=== PATIENT | male | born 1960 | race Caucasian/White ===

== ENCOUNTER 2017-10-09 14:52 | Emergency (ER) | payer BC ==
--- NOTE | 2017-10-09 15:33 | EDPHY ---
General Narrative: CHIEF COMPLAINT: Fall, headache, taking blood thinners HISTORY OF PRESENT ILLNESS: Patient complains of headache. He says yesterday afternoon he was walking when he tripped and fell. He struck his head face 1st on the dirt. Did not lose consciousness. Since that time he has had a [id number] headache. It has worsened to moderate to severe throughout the day. Some nausea and dizziness. No loss of consciousness. No vomiting. No visual disturbance. No neck pain. No injury anywhere else on his person. He does take Effient which concerned him. However he also took his Toradol today or increasing headache. No other associated complaints or modifying factors. REVIEW OF SYSTEMS: Ten systems reviewed and are negative unless otherwise noted in the HPI PCP: Dr. Colette Melton SPECIALISTS: Dr. Marshall Miguel PAST MEDICAL HISTORY: Hypertension, dyslipidemia, coronary artery disease with stents, headache, migraine, cluster headaches, GERD, peptic ulcer disease PAST SURGICAL HISTORY: No recent surgeries. Recent upper endoscopy revealing peptic ulcer nonbleeding SOCIAL HISTORY: Nonsmoker. No drug or alcohol use. FAMILY HISTORY: Noncontributory EXAMINATION General Appearance: Alert, no distress Head: normocephalic, atraumatic. No Plummer sign. No raccoon eyes. No depression , laceration or ecchymosis Eyes: Pupils equal and round, no conjunctival pallor or injection ENT, Mouth: Mucous membranes moist. Airway patent Neck: Normal inspection, supple, non-tender. No crepitus, step-off or deformity. Painless range in all planes Respiratory: Lungs are clear to auscultation Cardiovascular: Regular rate and rhythm. No murmur Gastrointestinal: Abdomen is soft and nontender Neurological: A&O, nonfocal, normal gait strength is symmetric in all 4 limbs Skin: Warm and dry, no rash. No petechiae or purpura. No abrasion. No laceration Extremities: Nontender, no pedal edema. Symmetric range of motion of the extremities Psychiatric: Mood and affect normal DIFFERENTIAL DIAGNOSES: Including but not limited to closed head injury, concussion, subdural hematoma, subarachnoid hemorrhage, epidural hematoma, migraine headache MDM: 3:30 p.m. Mechanical fall with closed head injury and worsening frontal headache in a patient taking Effient. He is awake and alert no acute distress but his neuro exam is normal. No obvious signs of basilar skull fracture injury. I have ordered CT scan of the head due to his fall on anticoagulant. I have ordered laboratory studies and IV placement as he will likely need medication for his headache. Clinical suspicion is higher for exacerbation of chronic headaches and less likely intracranial hemorrhage. He is in no acute distress. Vital signs are stable. 4:15 p.m. Notified by radiologist Dr. Machado. No acute findings on the CT scan of the head. There are some chronic sinus inflammatory changes. Laboratory studies are unremarkable. 4:25 p.m. Patient re-evaluated. He is in no acute distress but does have a persistent headache. We discuss IV versus p.o. medication, but the patient drove himself here and wants to drive home. Will defer treatment here so he can go home. I will prescribe Tylenol 3 with codeine as he has had adverse reaction to Fiorinal in the past. In addition we discussed taking this with antihistamine. We discussed follow up with primary care physician. We discussed ED precautions for pain refractory to these medications, any neck pain or stiffness , nausea vomiting. He is comfortable with this plan and discharged home stable condition. SUPERVISION: Patient was independently examined, but I discussed the case with my secondary supervising physician Dr. Van - Diagnostics Imaging Results: Imaging Impressions Head CT 10/09/17 15:33 Impression: 1. Normal CT brain without contrast. 2. Mild sinusitis. 3. No epidural or subdural hematoma. 4. No skull fracture. Findings and recommendations discussed with Emergency Department physician, Fox Gao at 1615 hour, 10/09/2017. Final report concurs with initial preliminary interpretation. - History Smoking Status: Never smoked - Objective Vital Signs: Initial Vital Signs Temperature (C) 96.8 F 10/09/17 15:00 Heart Rate 88 10/09/17 15:00 Respiratory Rate 16 10/09/17 15:00 Blood Pressure 167/90 H 10/09/17 15:00 O2 Sat (%) 99 10/09/17 15:00 O2 Delivery Mode Room Air Allergies/Adverse Reactions: No Known Allergies Allergy (Unverified 10/09/17 14:59) Home Medications: Medication Instructions Recorded ALPRAZolam 10/09/17 Acetaminophen/Codeine 300/30Mg 1 each PO Q6 PRN #15 tab 10/09/17 [Tylenol #3 (*)] Ambien 10/09/17 Aspirin 10/09/17 Basiliximab 10/09/17 Belsomra 10/09/17 Cozaar 10/09/17 Effexor Xr 10/09/17 Effient 10/09/17 Lipitor 10/09/17 Nexium 10/09/17 Prednisone 10/09/17 Toradol 10/09/17 Trileptal 10/09/17 Laboratory Results: Laboratory Results 10/09/17 15:40 10/09/17 15:40 10/09/17 10/09/17 10/09/17 15:40 15:40 15:40 WBC 7.54 10^3/uL 10^3/uL (3.80-9.50) RBC 5.24 10^6/uL 10^6/uL (4.40-6.38) Hgb 15.0 g/dL g/dL (13.7-17.5) Hct 43.5 % % (40.0-51.0) MCV 83.0 fL fL (81.5-99.8) MCH 28.6 pg pg (27.9-34.1) MCHC 34.5 g/dL g/dL (32.4-36.7) RDW 13.9 % % (11.5-15.2) Plt Count 167 10^3/uL 10^3/uL (150-400) MPV 10.6 fL fL (8.7-11.7) Neut % (Auto) 68.4 % % (39.3-74.2) Lymph % (Auto) 22.1 % % (15.0-45.0) [place] % (Auto) 6.6 % % (4.5-13.0) Eos % (Auto) 1.7 % % (0.6-7.6) Baso % (Auto) 0.8 % % (0.3-1.7) Nucleat RBC Rel Count 0.0 % % (0.0-0.2) Absolute Neuts (auto) 5.15 10^3/uL 10^3/uL (1.70-6.50) Absolute Lymphs (auto) 1.67 10^3/uL 10^3/uL (1.00-3.00) Absolute Monos (auto) 0.50 10^3/uL 10^3/uL (0.30-0.80) Absolute Eos (auto) 0.13 10^3/uL 10^3/uL (0.03-0.40) Absolute Basos (auto) 0.06 10^3/uL 10^3/uL (0.02-0.10) Absolute Nucleated RBC 0.00 10^3/uL 10^3/uL (0-0.01) Immature Gran % 0.4 % % (0.0-1.1) Immature Gran # 0.03 10^3/uL 10^3/uL (0.00-0.10) PT 13.0 SEC SEC (12.0-15.0) INR 0.96 (0.83-1.16) APTT 25.8 SEC SEC (23.0-38.0) Sodium 139 mEq/L mEq/L (135-145) Potassium 3.6 mEq/L mEq/L (3.5-5.2) Chloride 103 mEq/L mEq/L (97-110) Carbon Dioxide 21 mEq/l L mEq/l (22-31) Anion Gap 15 mEq/L mEq/L (8-16) BUN 14 mg/dL mg/dL (7-23) Creatinine 0.7 mg/dL mg/dL (0.7-1.3) Estimated GFR > 60 Glucose 118 mg/dL H mg/dL (70-100) Calcium 9.6 mg/dL mg/dL (8.5-10.4) Departure - Departure Disposition: Home, Routine, Self-Care Clinical Impression: Frontal headache Closed head injury without concussion Qualifiers: Encounter type: initial encounter Qualified Code(s): S09.90XA - Unspecified injury of head, initial encounter Condition: Good Instructions: Acute Headache (ED), Head Injury (ED) Additional Instructions: 1. Medication as prescribed as needed 2. Contact primary care physician follow-up early next week 3. ED precautions for any pain refractory to these medications, sudden change in headache, neck pain or stiffness, fever, vomiting or visual disturbance Referrals: Colette Melton MD [Primary Care Provider] - As per Instructions Prescriptions: Acetaminophen/Codeine 300/30Mg [Tylenol #3 (*)] 1 each PO Q6 PRN #15 tab PRN Reason: Pain, Mild
[2017-10-09 15:52] LABS: PLATELET COUNT 167 10^3/uL (150-400)
[2017-10-09 15:57] LABS: INR 0.96 (0.83-1.16)
[2017-10-09 16:44] VITALS: BP 130/83; PULSE 75; RESP 18; TEMP 97.5; O2SAT 94
== END 2017-10-09 16:48 | disposition home or self-care (01) ==
DX: S09.90XA Unspecified injury of head, initial encounter (principal); I10 Essential (primary) hypertension; I25.10 Atherosclerotic heart disease of native coronary artery without angina pectoris; Z79.82 Long term (current) use of aspirin; W01.0XXA Fall on same level from slipping, tripping and stumbling without subsequent striking against object, initial encounter; Y99.8 Other external cause status; Y93.01 Activity, walking, marching and hiking

== ENCOUNTER → 2017-11-23 | Outpatient (CLI) | payer BC | LOC: FIMAGING 13:51 | PROVIDERS: ATTEND Internal Medicine | DX: R91.8 Other nonspecific abnormal finding of lung field (principal) ==

== ENCOUNTER → 2018-03-16 | Outpatient (CLI) | payer BC | LOC: BMCIMAGING 17:47 | PROVIDERS: ATTEND Family Medicine | DX: S92.515A Nondisplaced fracture of proximal phalanx of left lesser toe(s), initial encounter for closed fracture (principal); Y93.9 Activity, unspecified ==

== ENCOUNTER → 2018-04-21 | Outpatient (CLI) | payer BC | LOC: BMCIMAGING 10:44 | PROVIDERS: ATTEND Podiatrist Foot & Ankle Surgery | DX: S92.425 Nondisplaced fracture of distal phalanx of left great toe (principal) ==

== ENCOUNTER → 2018-06-03 | Outpatient (CLI) | payer BC, OTHER | LOC: BMCIMAGING 14:16 | PROVIDERS: ATTEND Podiatrist Foot & Ankle Surgery | DX: S92.425D Nondisplaced fracture of distal phalanx of left great toe, subsequent encounter for fracture with routine healing (principal) ==

== ENCOUNTER → 2018-07-16 | Outpatient (CLI) | payer BC | LOC: BMCIMAGING 09:35 | PROVIDERS: ATTEND Podiatrist Foot & Ankle Surgery | DX: S92.425D Nondisplaced fracture of distal phalanx of left great toe, subsequent encounter for fracture with routine healing (principal) ==

== ENCOUNTER 2018-09-05 12:34 | Emergency (ER) | payer BC ==
--- NOTE | 2018-09-05 12:48 | EDPHY ---
H & P Stated Complaint: Cough >1mo; noticed blood;general aches Time Seen by Provider: 09/05/18 12:48 HPI/ROS: CHIEF COMPLAINT: Cough, headache HISTORY OF PRESENT ILLNESS: The patient presents to the ED with multiple complaints including a 1 month history of cough, headache and myalgias. The patient has not sought care for evaluation of his symptoms. The patient did recently returned from [place] on an airplane. He does feel as if his symptoms have acutely worsened over the past several days. The patient denies any vomiting or diarrhea. The patient denies any history of fall or trauma. He has no complaints of acute numbness or weakness. The patient does complain of diffuse arthralgias predominantly in the back and shoulder. REVIEW OF SYSTEMS: A comprehensive 10 point review of systems is otherwise negative aside from elements mentioned in the history of present illness. Source: Patient Exam Limitations: No limitations - Personal History Current Tetanus Diphtheria and Acellular Pertussis (TDAP): Yes - Medical/Surgical History Hx Asthma: No Hx Chronic Respiratory Disease: No Hx Diabetes: No Hx Cardiac Disease: Yes Hx Renal Disease: No Hx Cirrhosis: No Hx Alcoholism: No Hx HIV/AIDS: No Hx Splenectomy or Spleen Trauma: No Other PMH: chronic fatigue, depression, anxiety, elevated CRP Hx, chronic back pain bulging disc L4-L5(Dr Fisher), migraines,IBS. 1 cardiac stent placed 03/24/17 - Social History Smoking Status: Never smoked - Physical Exam Exam: General Appearance: Alert, no distress Eyes: Pupils equal and round no pallor or injection ENT, Mouth: Mucous membranes moist Respiratory: There are no retractions, lungs are clear to auscultation Cardiovascular: Regular rate and rhythm Gastrointestinal: Abdomen is soft and nontender, no masses, bowel sounds normal Neurological: A&O, normal motor function, normal sensory exam, normal cranial nerves Skin: Warm and dry, no rashes Musculoskeletal: Neck is supple nontender Extremities: symmetrical, full range of motion Constitutional: Initial Vital Signs Temperature (C) 37 C 09/05/18 12:36 Heart Rate 92 09/05/18 12:36 Respiratory Rate 18 09/05/18 12:36 Blood Pressure 118/69 09/05/18 12:36 O2 Sat (%) 96 09/05/18 12:36 O2 Delivery Mode Room Air Allergies/Adverse Reactions: No Known Allergies Allergy (Verified 09/05/18 12:36) Home Medications: Medication Instructions Recorded ALPRAZolam [Xanax Xr] 2 mg PO HS 03/21/17 Losartan Potassium [Cozaar 50 mg 50 mg PO HS 03/21/17 (*)] Oxcarbazepine [Trileptal] 150 mg PO BID 03/21/17 Sumatriptan Succinate [Imitrex] 100 mg PO ONCE PRN MDD 200 MG 03/21/17 Venlafaxine Xr [Effexor Xr 75MG 75 mg PO DAILY 03/21/17 (*)] Atorvastatin Calcium [Lipitor 40 80 mg PO DAILY #60 tab 03/26/17 mg (*)] Nexium 10/09/17 Albuterol [Ventolin Hfa Inhaler] 2 puffs IH QID PRN #1 mdi 09/05/18 Aspirin EC [Aspirin EC 81 mg (*)] 81 mg PO DAILY 09/05/18 Azithromycin [Zithromax] 250 mg PO DAILY #6 tab 09/05/18 Clopidogrel Bisulfate [Plavix (*)] 75 mg PO DAILY 09/05/18 Hydrochlorothiazide [HCTZ (*)] 25 mg PO DAILY 09/05/18 Potassium Chloride [Klor-Con M10] 10 meq PO 09/05/18 Rexalte 09/05/18 traZODone [traZODONE 50MG (*)] 50 mg PO 09/05/18 Medical Decision Making - Diagnostics EKG Interpretation: EKG: Complete interpretation has been separately recorded in the [employer] archive. Summary impression: Sinus rhythm, rate 83, ischemic changes noted ED Course/Re-evaluation: Patient presents the ED with a 1 month history of a chronic cough, dyspnea, back pain and shoulder discomfort. The patient has had acutely worsening symptoms over the past several days after a recent plane flight to [place]. The patient was noted to be neurologically intact upon arrival. He is hemodynamically stable. The patient's EKG demonstrates no evidence of an arrhythmia. Given the patient's history of prolonged travel and dyspnea a CT pulmonary angiogram was evaluated to evaluate for pulmonary embolism and also evaluate for infectious process. The results of the patient's CT pulmonary angiogram demonstrated only bronchitis. There is evidence of possible atypical pneumonia. Additional blood work was unremarkable. Specifically the patient has no evidence of significant leukocytosis, anemia or a metabolic derangement. Re-evaluated the patient at 2:15 p.m.. At this point time I will treat him for bronchitis and the possibility of an atypical pathogen. The patient will be given a prescription for azithromycin and albuterol inhaler. The patient will be advised to follow up with his primary care provider at the [facility]. He will be discharged home with customary aftercare instructions and return precautions. The patient's influenza test is noted to be negative in the emergency department. Differential Diagnosis: Differential diagnosis considered includes asthma, bronchitis, pneumonia, pulmonary embolism, arrhythmia, dehydration, metabolic abnormality - Data Points Laboratory Results: Laboratory Results 09/05/18 13:01 09/05/18 09/05/18 09/05/18 13:05 13: 13:01 WBC 8.94 10^3/uL 10^3/uL (3.80-9.50) RBC 5.09 10^6/uL 10^6/uL (4.40-6.38) Hgb 14.7 g/dL g/dL (13.7-17.5) POC Hgb 15.0 gm/dL gm/dL (13.7-17.5) Hct 43.0 % % (40.0-51.0) POC Hct 44 % % (40-51) MCV 84.5 fL fL (81.5-99.8) MCH 28.9 pg pg (27.9-34.1) MCHC 34.2 g/dL g/dL (32.4-36.7) RDW 14.3 % % (11.5-15.2) Plt Count 114 10^3/uL L 10^3/uL (150-400) MPV 11.3 fL fL (8.7-11.7) Neut % (Auto) 83.0 % H % (39.3-74.2) Lymph % (Auto) 8.5 % L % (15.0-45.0) [place] % (Auto) 6.4 % % (4.5-13.0) Eos % (Auto) 1.5 % % (0.6-7.6) Baso % (Auto) 0.4 % % (0.3-1.7) Nucleat RBC Rel Count 0.0 % % (0.0-0.2) Absolute Neuts (auto) 7.42 10^3/uL H 10^3/uL (1.70-6.50) Absolute Lymphs (auto) 0.76 10^3/uL L 10^3/uL (1.00-3.00) Absolute Monos (auto) 0.57 10^3/uL 10^3/uL (0.30-0.80) Absolute Eos (auto) 0.13 10^3/uL 10^3/uL (0.03-0.40) Absolute Basos (auto) 0.04 10^3/uL 10^3/uL (0.02-0.10) Absolute Nucleated RBC 0.00 10^3/uL 10^3/uL (0-0.01) Immature Gran % 0.2 % % (0.0-1.1) Immature Gran # 0.02 10^3/uL 10^3/uL (0.00-0.10) POC Sodium 138 mEq/L mEq/L (135-145) POC Potassium 3.3 mEq/L mEq/L (3.3-5.0) POC Chloride 98 mEq/L mEq/L (97-110) POC BUN 15 mg/dL mg/dL (7-23) POC Creatinine 0.9 mg/dL mg/dL (0.7-1.3) POC Glucose 106 mg/dL H mg/dL (70-100) Nasal Influenza A PCR NEGATIVE FOR FLU A (NEGATIVE) Nasal Influenza B PCR NEGATIVE FOR FLU B (NEGATIVE) Point of Care Test Results: Chemistry 09/05/18 13:05 POC Sodium 138 mEq/L mEq/L (135-145) POC Potassium 3.3 mEq/L mEq/L (3.3-5.0) POC Chloride 98 mEq/L mEq/L (97-110) POC BUN 15 mg/dL mg/dL (7-23) POC Creatinine 0.9 mg/dL mg/dL (0.7-1.3) POC Glucose 106 mg/dL H mg/dL (70-100) ISTAT H&H 09/05/18 13:05 POC Hgb 15.0 gm/dL gm/dL (13.7-17.5) POC Hct 44 % % (40-51) Departure - Departure Disposition: Home, Routine, Self-Care Clinical Impression: Acute bronchitis Condition: Good Instructions: Acute Bronchitis (ED) Additional Instructions: 1. Please take antibiotics as directed. 2. Please use inhaler up to every 2-4 hours as needed for cough. 3. Please schedule a follow-up appointment with your primary care provider for a recheck in the next week. Referrals: Colette Melton MD [Primary Care Provider] - As per Instructions Prescriptions: Albuterol [Ventolin Hfa Inhaler] 2 puffs IH QID PRN #1 mdi PRN Reason: for shortness of breath Azithromycin [Zithromax] 250 mg PO DAILY #6 tab
[2018-09-05] MEDS ORDERED: IOPAMIDOL (ISOVUE 370) 100 ML BTL IV ONE (13:19)
--- NOTE | 2018-09-05 13:31 | CPEKG ---
Test Reason : OPEN Blood Pressure : / mmHG Vent. Rate : 083 BPM Atrial Rate : 084 BPM P-R Int : 196 ms QRS Dur : 097 ms QT Int : 360 ms P-R-T Axes : 047 025 018 degrees QTc Int : 423 ms Sinus rhythm Confirmed by Jose Phillips ([id number]) on 09/05/2018 1:30:25 PM Referred By: Confirmed By:Jose Phillips
[2018-09-05 13:40] LABS: PLATELET COUNT 114 10^3/uL (150-400)
[2018-09-05 14:17] VITALS: BP 117/85
== END 2018-09-05 14:24 | disposition home or self-care (01) ==
DX: J20.9 Acute bronchitis, unspecified (principal)
CPT/HCPCS: 82435-PO; 82565-PO; 82947-PO; 84132-PO; 84295-PO; 84520-PO; 85014-ER; Q9967

== ENCOUNTER → 2018-11-03 | Outpatient (CLI) | payer BC | LOC: BMCIMAGING 14:25 | PROVIDERS: ATTEND Podiatrist Foot & Ankle Surgery | DX: S92.425D Nondisplaced fracture of distal phalanx of left great toe, subsequent encounter for fracture with routine healing (principal); M24.875 Other specific joint derangements left foot, not elsewhere classified ==

== ENCOUNTER → 2018-11-16 | Outpatient (CLI) | payer BC ==
[~2018-11-16] MED LIST: IOPAMIDOL (ISOVUE 370) 100 ML BTL IV ONE
== END ==
LOC: FIMAGING 08:50
PROVIDERS: ATTEND Podiatrist Foot & Ankle Surgery
DX: S92.425D Nondisplaced fracture of distal phalanx of left great toe, subsequent encounter for fracture with routine healing (principal); K42.9 Umbilical hernia without obstruction or gangrene; K40.90 Unilateral inguinal hernia, without obstruction or gangrene, not specified as recurrent; N40.2 Nodular prostate without lower urinary tract symptoms; N28.1 Cyst of kidney, acquired; M51.35 Other intervertebral disc degeneration, thoracolumbar region
CPT/HCPCS: Q9967

== ENCOUNTER → 2019-01-05 | Outpatient (CLI) | payer BC | LOC: BMCIMAGING 13:38 | PROVIDERS: ATTEND Podiatrist Foot & Ankle Surgery | DX: Z09 Encounter for follow-up examination after completed treatment for conditions other than malignant neoplasm (principal) ==

== ENCOUNTER → 2019-01-12 | Outpatient (CLI) | payer BC | LOC: BMCIMAGING 10:19 | PROVIDERS: ATTEND Podiatrist Foot & Ankle Surgery | DX: S92.425D Nondisplaced fracture of distal phalanx of left great toe, subsequent encounter for fracture with routine healing (principal) ==

== ENCOUNTER → 2019-01-19 | Outpatient (CLI) | payer BC | LOC: BMCIMAGING 13:19 | PROVIDERS: ATTEND Podiatrist Foot & Ankle Surgery | DX: Z09 Encounter for follow-up examination after completed treatment for conditions other than malignant neoplasm (principal); Z98.1 Arthrodesis status ==

== ENCOUNTER → 2019-02-02 | Outpatient (CLI) | payer BC | LOC: BMCIMAGING 13:56 ==

== ENCOUNTER → 2019-02-16 | Outpatient (CLI) | payer BC | LOC: BMCIMAGING 13:32 ==